=== PATIENT | female | born 1990 | race Hispanic/Latino ===

== ENCOUNTER 2022-03-23 05:26 | Emergency (ER) | payer BC ==
[2022-03-23 06:21] LABS: #Monocytes 0.3 10x3/uL (0.0-1.1); #Neutrophils 6.8 10x3/uL (1.5-8.4); %Basophils 0.1 % (0.0-2.0); %Eosinophils 0.5 % (0.0-6.0); %Lymphocytes 3.9 % (18.0-47.0); %Monocytes 3.9 % (0.0-10.0); %Neutrophils 91.3 % (40.0-75.0); Hemoglobin 14.8 g/dL (12.0-15.5); Mean Corpuscular HGB CONC 35.4 g/dL (32.0-36.0); Mean Corpuscular Hemoglobin 33.6 pg (27.0-33.0); Mean Platelet Volume 9.6 fl (7.4-10.4); Platelet Count 189 10x3/uL (150-450); RBC Distribution Width 12.2 % (11.5-14.5); White Blood Cell (WBC) Count 7.5 10x3/uL (3.5-10.5)
[2022-03-23] MEDS ORDERED: Ondansetron ODT 4 MG TAB ONE (06:22)
[2022-03-23 06:28] LABS: BHCG - Serum Negative (NEGATIVE); Pregs Control Background? CLEAR/WHITE (CLR/WHITE); Pregs Control Bar Appear? YES (CONTROL BAR)
[2022-03-23 06:35] LABS: ALT (SGPT) 18 U/L (8-55); AST (SGOT) 19 U/L (5-34); Albumin 4.1 g/dL (3.5-5.0); Alkaline Phosphatase 58 U/L (40-110); Anion Gap 14 mmol/L (10-20); BUN (Urea Nitrogen) 19 mg/dL (7.0-18.7); Bilirubin, Total 1.6 mg/dL (0.2-1.2); Calc. Creatinine Clearance 0 mL/min (70-130); Calcium 8.9 mg/dL (7.8-10.44); Carbon Dioxide 23 mmol/L (22-29); Chloride 106 mmol/L (98-107); Estimated GFR 108; Globulin 3.3 g/dL (2.4-3.5); Glucose 104 mg/dL (70-105); Lipase 22 U/L (8-78); Potassium 3.8 mmol/L (3.5-5.1); Protein, Total 7.4 g/dL (6.0-8.3); Sodium 139 mmol/L (136-145)
== END 2022-03-23 06:56 | disposition home or self-care (01) ==
LOC: CSHERS 05:26
DX: K52.9 Noninfective gastroenteritis and colitis, unspecified (principal)
CPT/HCPCS: 36415; 80053; 83690; 84703; 85025; 99284; Q0162

== ENCOUNTER 2023-01-11 21:55 | Emergency (ER) | payer BC ==
[2023-01-11] MEDS ORDERED: Dexamethasone 10 MG/ML VIAL ONE (23:45)
== END 2023-01-11 23:35 | disposition home or self-care (01) ==
LOC: CSHERS 21:55
DX: J03.90 Acute tonsillitis, unspecified (principal)
CPT/HCPCS: 99282; J1100

== ENCOUNTER 2024-06-01 09:25 | Day surgery (SDC) | payer BC ==
[2024-05-31 11:42] VITALS: BMI 21.1
[2024-06-01] MEDS ORDERED: PROPOFOL 20 ML ONE (12:03)
[2024-06-01] MEDS ORDERED: Lidocaine 2% PF 5 ML VIAL ONE (12:03)
[2024-06-01] MEDS ORDERED: Midazolam HCl 2 mg/2 ml Vial ONE (12:05)
[2024-06-01] MEDS ORDERED: fentaNYL 50 mcg/mL 1 mL Vial ONE (12:06)
[2024-06-01] MEDS ORDERED: CEFAZOLIN 2 GM VIAL ONE (12:11)
[2024-06-01] MEDS ORDERED: Ketorolac Tromethamine 30 MG (1 mL) VIAL ONE (12:27)
[2024-06-01] MEDS ORDERED: Ondansetron PF 4 MG/2 ML Vial ONE (12:27)
[2024-06-01] MEDS ORDERED: Dexamethasone 20 MG/5 ML VIAL ONE (12:27)
[2024-06-01] MEDS ORDERED: PHENYLEPHRINE-NS 100 MCG/ML 10 ML SYRINGE ONE (13:02)
== END 2024-06-01 14:45 | disposition home or self-care (01) ==
LOC: CSHSDC 09:25
PROVIDERS: ATTEND Podiatrist Foot & Ankle Surgery
PROC: 0QSN04Z Reposition Right Metatarsal with Internal Fixation Device, Open Approach (ICD-10-PCS; principal; 2024-06-01)
DX: M21.611 Bunion of right foot (principal)
CPT/HCPCS: C1713; J1100; J1885; J2250; J2405; J2704; J3010